=== PATIENT | male | born 1965 | race Caucasian/White ===

== ENCOUNTER 2016-09-28 10:32 | Outpatient (CLI) | payer OTHER ==
[2016-09-28 10:43] LABS: BASOPHILS # (AUTO) 0.1 10^3/uL (0.0-0.1); BASOPHILS % (AUTO) 0.6 %; EOSINOPHILS # (AUTO) 0.3 10^3/uL (0.0-0.7); EOSINOPHILS % (AUTO) 3.8 %; HCT - HEMATOCRIT 45.6 % (42.0-52.0); HGB - HEMOGLOBIN 15.5 g/dL (14.0-18.0); LYMPHOCYTES % (AUTO) 23.2 %; MEAN CORPUSCULAR HEMOGLOBIN 29.1 pg (27.0-31.0); MEAN CORPUSCULAR VOLUME 85.7 fL (80.0-94.0); MONOCYTES # (AUTO) 0.7 10^3/uL (0.0-1.0); MONOCYTES % (AUTO) 8.5 %; NEUTROPHILS # (AUTO) 5.5 10^3/uL (1.5-6.6); NEUTROPHILS % (AUTO) 63.9 %; RED BLOOD COUNT 5.33 10^6/uL (4.70-6.10); RED CELL DISTRIBUTION WIDTH 15.1 % (12.0-15.0); UNCORRECTED WHITE BLOOD COUNT 8.6 x10^3/uL; WHITE BLOOD COUNT 8.6 x10^3/uL (4.8-10.8)
[2016-09-28 11:00] LABS: ALBUMIN/GLOBULIN RATIO 1.7 (1.0-2.2); BILIRUBIN,TOTAL 0.7 mg/dL (0.2-1.0); CALCIUM 9.3 mg/dL (8.5-10.3); CREATININE 1.1 mg/dL (0.6-1.2); POTASSIUM 4.1 mmol/L (3.5-5.0); TOTAL PROTEIN 7.2 g/dL (6.7-8.2)
== END 2016-09-28 10:33 | disposition home or self-care (01) ==
LOC: LAB 10:32
PROVIDERS: ATTEND Surgery
DX: Z01.812 Encounter for preprocedural laboratory examination (principal)
CPT/HCPCS: 36415; 80053; 85025

== ENCOUNTER 2016-10-28 10:39 | Outpatient (CLI) | payer OTHER ==
[2016-10-28 18:53] LABS: BASOPHILS % (AUTO) 0.4 %; EOSINOPHILS # (AUTO) 0.2 10^3/uL (0.0-0.7); EOSINOPHILS % (AUTO) 3.1 %; HCT - HEMATOCRIT 42.5 % (42.0-52.0); HGB - HEMOGLOBIN 14.1 g/dL (14.0-18.0); LYMPHOCYTES # (AUTO) 1.7 10^3/uL (1.5-3.5); LYMPHOCYTES % (AUTO) 23.2 %; MEAN CORPUSCULAR HEMOGLOBIN 29.4 pg (27.0-31.0); MEAN CORPUSCULAR HGB CONC 33.2 g/dL (32.0-36.0); MEAN CORPUSCULAR VOLUME 88.5 fL (80.0-94.0); MEAN PLATELET VOLUME 8.1 fL (7.4-11.4); MONOCYTES # (AUTO) 0.6 10^3/uL (0.0-1.0); MONOCYTES % (AUTO) 7.8 %; NEUTROPHILS # (AUTO) 4.9 10^3/uL (1.5-6.6); NEUTROPHILS % (AUTO) 65.5 %; RED CELL DISTRIBUTION WIDTH 15.5 % (12.0-15.0); UNCORRECTED WHITE BLOOD COUNT 7.5 x10^3/uL; WHITE BLOOD COUNT 7.5 x10^3/uL (4.8-10.8)
[2016-10-28 19:21] LABS: ALBUMIN/GLOBULIN RATIO 1.7 (1.0-2.2); BILIRUBIN,TOTAL 0.7 mg/dL (0.2-1.0); BUN - BLOOD UREA NITROGEN 14 mg/dL (6-20); CALCIUM 9.1 mg/dL (8.5-10.3); CARBON DIOXIDE - CO2 28 mmol/L (21-32); CHLORIDE 107 mmol/L (101-111); CHOL/HDL RATIO 4.1 (<5.0); CHOLESTEROL 136 mg/dL; CREATININE 1.2 mg/dL (0.6-1.2); GFR - MDRD 65 (>89); GLUCOSE 83 mg/dL (70-100); HDL CHOLESTEROL 33 mg/dL; LDL/HDL RATIO 2.4 (<3.6); POTASSIUM 4.2 mmol/L (3.5-5.0); SODIUM 143 mmol/L (135-145); TOTAL PROTEIN 6.9 g/dL (6.7-8.2); TRIGLYCERIDES 118 mg/dL; VLDL CHOLESTEROL 24 mg/dL
[2016-10-28 19:22] LABS: PSA TOTAL 0.51 ng/mL (0.000-2.000)
[2016-10-28 19:25] LABS: HEMOGLOBIN A1C 0.49 g/dL
== END 2016-10-28 10:40 | disposition home or self-care (01) ==
LOC: LAB.WCP 10:39
PROVIDERS: ATTEND Family Medicine
DX: I10 Essential (primary) hypertension (principal); E11.9 Type 2 diabetes mellitus without complications; E29.1 Testicular hypofunction
CPT/HCPCS: 36415; 80053; 80061; 82043; 83036; 84153; 84403; 84443; 85025

== ENCOUNTER 2017-04-19 08:41 | Outpatient (CLI) | payer OTHER ==
[2017-04-19 09:14] LABS: BASOPHILS % (AUTO) 0.6 %; EOSINOPHILS # (AUTO) 0.2 10^3/uL (0.0-0.7); EOSINOPHILS % (AUTO) 2.6 %; HCT - HEMATOCRIT 43.2 % (42.0-52.0); HGB - HEMOGLOBIN 14.4 g/dL (14.0-18.0); LYMPHOCYTES # (AUTO) 1.8 10^3/uL (1.5-3.5); LYMPHOCYTES % (AUTO) 27.2 %; MEAN CORPUSCULAR HEMOGLOBIN 29.1 pg (27.0-31.0); MEAN CORPUSCULAR HGB CONC 33.4 g/dL (32.0-36.0); MEAN CORPUSCULAR VOLUME 87.1 fL (80.0-94.0); MEAN PLATELET VOLUME 7.7 fL (7.4-11.4); MONOCYTES # (AUTO) 0.4 10^3/uL (0.0-1.0); MONOCYTES % (AUTO) 6.4 %; NEUTROPHILS # (AUTO) 4.1 10^3/uL (1.5-6.6); NEUTROPHILS % (AUTO) 63.2 %; NUCLEATED RED BLOOD CELLS AUTO 0.1 /100WBC; RED BLOOD COUNT 4.96 10^6/uL (4.70-6.10); UNCORRECTED WHITE BLOOD COUNT 6.4 x10^3/uL; WHITE BLOOD COUNT 6.4 x10^3/uL (4.8-10.8)
[2017-04-19 09:40] LABS: ALBUMIN/GLOBULIN RATIO 1.6 (1.0-2.2); BILIRUBIN,TOTAL 0.8 mg/dL (0.2-1.0); BUN - BLOOD UREA NITROGEN 14 mg/dL (6-20); CALCIUM 9.3 mg/dL (8.5-10.3); CARBON DIOXIDE - CO2 29 mmol/L (21-32); CHLORIDE 105 mmol/L (101-111); CHOL/HDL RATIO 3.9 (<5.0); CHOLESTEROL 138 mg/dL; GFR - MDRD 79 (>89); GLUCOSE 101 mg/dL (70-100); HDL CHOLESTEROL 35 mg/dL; HEMOGLOBIN A1C 0.52 g/dL; IRON 69 ug/dL (45-182); LDL/HDL RATIO 2.4 (<3.6); POTASSIUM 4.3 mmol/L (3.5-5.0); SODIUM 144 mmol/L (135-145); TOTAL IRON BINDING CAPACITY 248 ug/dL (250-450); TOTAL PROTEIN 6.9 g/dL (6.7-8.2); TRANSFERRIN 177 mg/dL (180-329); TRIGLYCERIDES 101 mg/dL; VLDL CHOLESTEROL 20 mg/dL
[2017-04-19 09:51] LABS: THYROID STIMULATING HORMONE 1.49 uIU/mL (0.34-5.60)
[2017-04-19 09:58] LABS: FERRITIN 190.9 ng/mL (23.9-336.2)
[2017-04-19 10:02] LABS: FOLATE 22.04 ng/mL (5.90 - >24.8)
== END 2017-04-19 08:42 | disposition home or self-care (01) ==
LOC: LAB 08:41
PROVIDERS: ATTEND Registered Nurse Community Health
DX: E44.0 Moderate protein-calorie malnutrition (principal); E63.9 Nutritional deficiency, unspecified
CPT/HCPCS: 36415; 80053; 80061; 82306; 82607; 82728; 82746; 83036; 83540; 84425; 84443; 84466; 85025

== ENCOUNTER 2018-01-04 23:20 | Emergency (ER) | payer OTHER ==
[2018-01-04] MEDS ORDERED: NITROGLYCERIN SL 0.4 MG TABLET SL STA ×2 (23:36→23:37)
[2018-01-04] MEDS ORDERED: NITROGLYCERIN 2% PASTE TOP STA (23:37)
[2018-01-04] MEDS ORDERED: NITROGLYCERIN SL 0.4 MG TABLET SL ONE (23:37)
[2018-01-04] MEDS ORDERED: ASPIRIN CHEW 81 MG TABLET ONE (23:37)
[2018-01-04] MEDS ORDERED: ASPIRIN 325 MG TABLET PO STA (23:37)
[2018-01-04] MEDS ORDERED: ASPIRIN CHEW 81 MG TABLET PO STA (23:37)
[2018-01-04 23:43] LABS: BASOPHILS # (AUTO) 0.1 10^3/uL (0.0-0.1); BASOPHILS % (AUTO) 0.6 %; EOSINOPHILS # (AUTO) 0.3 10^3/uL (0.0-0.7); EOSINOPHILS % (AUTO) 2.8 %; HGB - HEMOGLOBIN 15.2 g/dL (14.0-18.0); LYMPHOCYTES # (AUTO) 3.2 10^3/uL (1.5-3.5); LYMPHOCYTES % (AUTO) 27.4 %; MEAN CORPUSCULAR HEMOGLOBIN 29.6 pg (27.0-31.0); MEAN CORPUSCULAR HGB CONC 33.5 g/dL (32.0-36.0); MEAN CORPUSCULAR VOLUME 88.2 fL (80.0-94.0); MEAN PLATELET VOLUME 7.8 fL (7.4-11.4); MONOCYTES % (AUTO) 8.5 %; NEUTROPHILS # (AUTO) 7.2 10^3/uL (1.5-6.6); NEUTROPHILS % (AUTO) 60.7 %; PLT - PLATELET COUNT 236 10^3/uL (130-450); RED BLOOD COUNT 5.13 10^6/uL (4.70-6.10); RED CELL DISTRIBUTION WIDTH 13.9 % (12.0-15.0); WHITE BLOOD COUNT 11.8 x10^3/uL (4.8-10.8)
--- NOTE | 2018-01-05 00:16 | XRAY Report ---
Procedure Date: 01/04/2018 Accession Number: [id number] / [id number] Procedure: XR - Chest 1 View X-Ray CPT Code: 06064 FULL RESULT: EXAM: CHEST RADIOGRAPHY EXAM DATE: 01/04/2018 11:53 PM. CLINICAL HISTORY: Chest pain. COMPARISON: CHEST 2 VIEW PA/LAT 09/22/2015 11:00 AM. TECHNIQUE: 1 view. FINDINGS: Lungs/Pleura: No alveolar consolidation or pleural effusion seen. No pneumothorax. Mediastinum: Within exam limitations, the cardiomediastinal contour is normal. Other: None. IMPRESSION: 1. No acute abnormality seen in the chest. RADIA
[2018-01-05 00:19] LABS: ALBUMIN 4.6 g/dL (3.2-5.5); ALBUMIN/GLOBULIN RATIO 1.5 (1.0-2.2); BILIRUBIN,TOTAL 0.9 mg/dL (0.2-1.0); CREATININE 1.1 mg/dL (0.6-1.2); TOTAL PROTEIN 7.7 g/dL (6.7-8.2)
--- NOTE | 2018-01-05 01:39 | ED Physician Documentation ---
PD HPI CHEST PAIN - Stated complaint Stated Complaint: CHEST PX - Chief complaint Chief Complaint: Cardiac - History obtained from History obtained from: Patient, Family - History of Present Illness Timing - onset: Today Timing - onset during: Rest Timing - details: Abrupt onset, Still present Quality: Pressure, Aching Location: Substernal, Left chest Worsened by: Exertion Associated symptoms: Shortness of air, Nausea Similar symptoms before: Work up / diagnostics Recently seen: Not recently seen - Additional information Additional information: Patient is a 52 year old obese male who is presenting to the emergency department for chest pain. Patient states that it started at rest and is severe in nature. patient reports that it happened a few weeks ago when he was on vacation but did not stay for prolonged treatment. At that time the pain did resolve with nitro. Upon initial evaluation patient was awake, alert, in pain and diaphoretic. Review of Systems Constitutional: denies: Fever, Chills Cardiac: reports: Chest pain / pressure, Palpitations. denies: Pedal edema, Calf pain Respiratory: denies: Dyspnea, Cough GI: reports: Nausea. denies: Vomiting Musculoskeletal: denies: Back pain, Extremity pain Neurologic: denies: Generalized weakness PD PAST MEDICAL HISTORY - Past Medical History Past Medical History: Yes Cardiovascular: None Respiratory: Asthma, COPD Endocrine/Autoimmune: HyPOthyroidism GI: Ulcers, Other : None HEENT: Chronic sinusitis, Chronic hearing loss Psych: None Musculoskeletal: Osteoarthritis, Chronic back pain Derm: None - Past Surgical History Past Surgical History: Yes General: Cholecystectomy HEENT: Tonsil/Adenoidectomy - Present Medications Home Medications: Ambulatory Orders Medication Instructions Recorded Confirmed Albuterol [Ventolin Hfa] 1 puffs PO QID 05/12/15 02/23/16 Bupropion HCl [Wellbutrin] 150 mg PO DAILY 05/12/15 02/23/16 Fluticasone/Salmeterol 500/50 1 puffs PO DAILY 05/12/15 02/23/16 [Advair 500 Mcg/50 Mcg] Ipratropium/Albuterol [Duoneb] 3 ml PO PRN PRN 05/12/15 02/20/16 Levothyroxine [Synthroid] 50 mcg PO DAILY 05/12/15 02/23/16 Testosterone [Androgel] 5 gm TOP DAILY 05/12/15 02/23/16 oxyCODONE ER [OxyCONTIN] 20 mg PO TID 05/12/15 02/23/16 Gabapentin 300 mg PO BID 01/30/16 02/23/16 Losartan [Cozaar] 100 mg PO DAILY 01/30/16 02/23/16 - Allergies Allergies/Adverse Reactions: Allergies Allergy/AdvReac Type Severity Reaction Status Date / Time No Known Drug Allergies Allergy Verified 01/04/18 23:33 - Social History Does the pt smoke?: No Smoking Status: Never smoker Does the pt drink ETOH?: No Does the pt have substance abuse?: No - Immunizations Immunizations are current?: Yes - POLST Patient has POLST: No PD ED PE NORMAL - Vitals Vital signs reviewed: Yes - General General: Alert and oriented X 3 - HEENT HEENT: Atraumatic - Neck Neck: No JVD - Cardiac Cardiac: RRR - Respiratory Respiratory: Clear bilaterally - Abdomen Abdomen: Soft - Derm Derm: Normal color, Warm and dry - Extremities Extremities: No deformity - Neuro Neuro: Alert and oriented X 3 PD ED PE EXPANDED - General General: Alert, In Pain, Other (obese) Results - Vitals Vitals: Vital Signs - 24 hr 01/04/18 01/04/18 01/04/18 23:20 23:43 23:55 Temperature 36.3 C L Heart Rate 79 78 72 Respiratory 17 14 19 Rate Blood Pressure 142/83 H 106/62 112/67 O2 Saturation 100 97 97 01/05/18 01/05/18 01/05/18 00:10 00:35 01:06 Temperature Heart Rate 77 69 69 Respiratory 22 15 15 Rate Blood Pressure 106/71 92/65 109/73 O2 Saturation 100 100 99 Oxygen O2 Source Room air - EKG (time done) 2326 Rate: Rate (enter#) (75) Rhythm: NSR [place]: Normal Intervals: Normal [place] Ischemia: ST depression 2342 Rate: Rate (enter#) (83) Rhythm: NSR [place]: Normal Intervals: Normal [place] QRS: Normal Compare to prior EKG: Changed from prior EKG 0008 Rate: Rate (enter#) (69) Rhythm: NSR [place]: Normal Intervals: Normal [place] QRS: Normal Compare to prior EKG: Unchanged from prior EKG - Labs Labs: Laboratory Tests 08/22/18 08/22/18 08/22/18 23:30 23:30 23:30 WBC 11.8 H RBC 5.13 Hgb 15.2 Hct 45.2 MCV 88.2 MCH 29.6 MCHC 33.5 RDW 13.9 Plt Count 236 MPV 7.8 Neut # (Auto) 7.2 H Lymph # (Auto) 3.2 [place] # (Auto) 1.0 Eos # (Auto) 0.3 Baso # (Auto) 0.1 Absolute Nucleated RBC 0.00 Nucleated RBC % 0.0 Sodium 139 Potassium 4.0 Chloride 102 Carbon Dioxide 30 Anion Gap 7.0 BUN 14 Creatinine 1.1 Estimated GFR (MDRD) 71 L Glucose 83 Calcium 9.0 Total Bilirubin 0.9 AST 42 ALT 32 Alkaline Phosphatase 108 Troponin I < 0.04 B-Natriuretic Peptide Total Protein 7.7 Albumin 4.6 Globulin 3.1 Albumin/Globulin Ratio 1.5 Lipase 27 01/04/18 23:30 WBC RBC Hgb Hct MCV MCH MCHC RDW Plt Count MPV Neut # (Auto) Lymph # (Auto) [place] # (Auto) Eos # (Auto) Baso # (Auto) Absolute Nucleated RBC Nucleated RBC % Sodium Potassium Chloride Carbon Dioxide Anion Gap BUN Creatinine Estimated GFR (MDRD) Glucose Calcium Total Bilirubin AST ALT Alkaline Phosphatase Troponin I B-Natriuretic Peptide 6 Total Protein Albumin Globulin Albumin/Globulin Ratio Lipase - Rads (name of study) chest x-ray Radiology: Final report received (normal) PD MEDICAL DECISION MAKING - ED course Complexity details: reviewed old records, reviewed results, re-evaluated patient , considered differential, d/w patient, d/w family, d/w customer experience consultant ED course: Patient was seen and examined at bedside. Patient was diaphoretic and in pain. ekg was performed and showed mild st depression in lateral leads but no other ischemic changes. IV access was gained and labs were drawn. patient was treated with nitro sl and aspirin. chest x-ray was ordered. Patient's pain resolved with nitro with the drop in blood pressure. Patient two subsequent ekgs showed normalization of the lateral leads. patient's chest x-ray was within normal limits. Patient's symptoms were likely secondary to unstable angina. Case was discussed with dr. pearce at [facility] who accepted the patient in transfer. Patient was transferred chest pain free. - Sepsis Event Vital Signs: Vital Signs - 24 hr 01/04/18 01/04/18 01/04/18 23:20 23:43 23:55 Temperature 36.3 C L Heart Rate 79 78 72 Respiratory 17 14 19 Rate Blood Pressure 142/83 H 106/62 112/67 O2 Saturation 100 97 97 01/05/18 01/05/18 01/05/18 00:10 00:35 01:06 Temperature Heart Rate 77 69 69 Respiratory 22 15 15 Rate Blood Pressure 106/71 92/65 109/73 O2 Saturation 100 100 99 Oxygen O2 Source Room air Departure - Departure Disposition: 02 Transfer Acute Care Hosp Clinical Impression: Unstable angina Condition: Critical
[2018-01-05] MEDS ORDERED: SODIUM CHLORIDE 0.9% 1,000 ML IV ONE (02:17)
[2018-01-05 02:45] VITALS: BP 127/87
== END 2018-01-05 02:50 | disposition short-term general hospital (02) ==
LOC: ED 23:20
DX: I20.0 Unstable angina (principal); J44.9 Chronic obstructive pulmonary disease, unspecified
CPT/HCPCS: 36415; 71045; 80053; 83690; 83880; 84484; 85025; 93005; 96360; 96361; 99284; 99285; A9270

== ENCOUNTER 2018-03-21 10:07 | Outpatient (CLI) | payer MEDICARE ==
[2018-03-21 10:49] LABS: BASOPHILS % (AUTO) 0.5 %; EOSINOPHILS # (AUTO) 0.2 10^3/uL (0.0-0.7); EOSINOPHILS % (AUTO) 3.2 %; HGB - HEMOGLOBIN 14.6 g/dL (14.0-18.0); LYMPHOCYTES # (AUTO) 1.3 10^3/uL (1.5-3.5); LYMPHOCYTES % (AUTO) 23.1 %; MEAN CORPUSCULAR HGB CONC 34.3 g/dL (32.0-36.0); MEAN CORPUSCULAR VOLUME 87.6 fL (80.0-94.0); MEAN PLATELET VOLUME 7.4 fL (7.4-11.4); MONOCYTES # (AUTO) 0.4 10^3/uL (0.0-1.0); MONOCYTES % (AUTO) 7.5 %; NEUTROPHILS # (AUTO) 3.8 10^3/uL (1.5-6.6); NEUTROPHILS % (AUTO) 65.7 %; PLT - PLATELET COUNT 178 10^3/uL (130-450); RED BLOOD COUNT 4.87 10^6/uL (4.70-6.10); RED CELL DISTRIBUTION WIDTH 13.5 % (12.0-15.0); WHITE BLOOD COUNT 5.8 x10^3/uL (4.8-10.8)
[2018-03-21 11:13] LABS: ALBUMIN 4.5 g/dL (3.2-5.5); ALBUMIN/GLOBULIN RATIO 1.7 (1.0-2.2); ALKALINE PHOSPHATASE 98 IU/L (42-121); ALT ALANINE AMINOTRANSFERASE 27 IU/L (10-60); AST ASPARTATE AMINOTRANSFERASE 17 IU/L (10-42); BILIRUBIN,TOTAL 0.9 mg/dL (0.2-1.0); BUN - BLOOD UREA NITROGEN 13 mg/dL (6-20); CARBON DIOXIDE - CO2 32 mmol/L (21-32); CHLORIDE 104 mmol/L (101-111); CHOL/HDL RATIO 3.8 (<5.0); CHOLESTEROL 153 mg/dL; CREATININE 1.1 mg/dL (0.6-1.2); GFR - MDRD 71 (>89); GLUCOSE 100 mg/dL (70-100); HDL CHOLESTEROL 40 mg/dL; LDL CHOLESTEROL,CALCULATED 98 mg/dL; LDL/HDL RATIO 2.5 (<3.6); SODIUM 142 mmol/L (135-145); TOTAL PROTEIN 7.2 g/dL (6.7-8.2); VLDL CHOLESTEROL 15 mg/dL
[2018-03-21 11:26] LABS: HB2 TOTAL 15.4 g/dL; HEMOGLOBIN A1C 0.55 g/dL; HEMOGLOBIN A1C % 5.4 % (4.6-6.2)
== END 2018-03-21 10:08 | disposition home or self-care (01) ==
LOC: LAB 10:07
PROVIDERS: ATTEND Family Medicine
DX: E11.9 Type 2 diabetes mellitus without complications (principal); E29.1 Testicular hypofunction; E03.9 Hypothyroidism, unspecified
CPT/HCPCS: 36415; 80053; 80061; 83036; 83721; 84403; 84443; 85025

== ENCOUNTER 2018-03-31 16:08 | Outpatient (CLI) | payer MEDICARE | END 2018-03-31 16:09 | disposition home or self-care (01) | LOC: LAB 16:08 | PROVIDERS: ATTEND Family Medicine | DX: E29.1 Testicular hypofunction (principal) | CPT/HCPCS: 36415; 84403 ==

== ENCOUNTER 2018-08-07 08:00 | Outpatient (CLI) | payer MEDICARE | END 2018-08-07 23:59 | disposition home or self-care (01) | LOC: LAB.R 08:00 | PROVIDERS: ATTEND Physician Assistant | DX: R05 Cough (principal) | CPT/HCPCS: 87275; 87276 ==

== ENCOUNTER 2018-08-07 14:35 | Outpatient (CLI) | payer MEDICARE ==
--- NOTE | 2018-08-07 15:31 | XRAY Report ---
Reason: COUGH Procedure Date: 08/07/2018 Accession Number: [id number] / [id number] Procedure: WCP - Chest 2 View X-Ray CPT Code: 85416 FULL RESULT: EXAM: CHEST RADIOGRAPHY EXAM DATE: 08/07/2018 02:50 PM. CLINICAL HISTORY: Cough. COMPARISON: CHEST 1 VIEW 01/04/2018 11:41 PM. TECHNIQUE: 2 views. FINDINGS: Lungs/Pleura: No focal opacities evident. No pleural effusion. No pneumothorax. Normal volumes. Mediastinum: Heart and mediastinal contours are unremarkable. Other: None. IMPRESSION: Normal 2-view chest radiography. RADIA
== END 2018-08-07 14:36 | disposition home or self-care (01) ==
LOC: DI.WCP 14:35
PROVIDERS: ATTEND Physician Assistant
DX: R05 Cough (principal)
CPT/HCPCS: 71046; 87275; 87276

== ENCOUNTER 2019-06-21 11:11 | Outpatient (CLI) | payer MEDICARE ==
[2019-06-21 11:41] LABS: MUDS CUTOFF CONCENTRATIONS CUTOFF CONC BELOW:
[2019-06-21 12:11] LABS: BASOPHILS % (AUTO) 0.7 %; EOSINOPHILS # (AUTO) 0.1 10^3/uL (0.0-0.7); EOSINOPHILS % (AUTO) 2.7 %; HGB - HEMOGLOBIN 15.1 g/dL (14.0-18.0); LYMPHOCYTES # (AUTO) 1.2 10^3/uL (1.5-3.5); LYMPHOCYTES % (AUTO) 25.7 %; MEAN CORPUSCULAR HEMOGLOBIN 32.3 pg (27.0-31.0); MEAN CORPUSCULAR HGB CONC 35.5 g/dL (32.0-36.0); MEAN CORPUSCULAR VOLUME 90.8 fL (80.0-94.0); MEAN PLATELET VOLUME 10.2 fL (7.4-11.4); MONOCYTES # (AUTO) 0.3 10^3/uL (0.0-1.0); MONOCYTES % (AUTO) 5.6 %; NEUTROPHILS # (AUTO) 2.9 10^3/uL (1.5-6.6); NEUTROPHILS % (AUTO) 64.9 %; PLT - PLATELET COUNT 224 10^3/uL (130-450); RED BLOOD COUNT 4.68 10^6/uL (4.70-6.10); RED CELL DISTRIBUTION WIDTH 12.9 % (12.0-15.0); WHITE BLOOD COUNT 4.5 x10^3/uL (4.8-10.8)
[2019-06-21 12:30] LABS: ALBUMIN 4.4 g/dL (3.2-5.5); ALBUMIN/GLOBULIN RATIO 1.8 (1.0-2.2); ALKALINE PHOSPHATASE 73 IU/L (42-121); ALT ALANINE AMINOTRANSFERASE 17 IU/L (10-60); AST ASPARTATE AMINOTRANSFERASE 17 IU/L (10-42); BILIRUBIN,TOTAL 1.1 mg/dL (0.2-1.0); BUN - BLOOD UREA NITROGEN 13 mg/dL (6-20); CALCIUM 9.1 mg/dL (8.5-10.3); CARBON DIOXIDE - CO2 29 mmol/L (21-32); CHLORIDE 103 mmol/L (101-111); CHOL/HDL RATIO 3.6 (<5.0); CHOLESTEROL 166 mg/dL; CREATININE 1.1 mg/dL (0.6-1.2); GFR - MDRD 71 (>89); GLUCOSE 101 mg/dL (70-100); HDL CHOLESTEROL 46 mg/dL; LDL CHOLESTEROL,CALCULATED 104 mg/dL; LDL/HDL RATIO 2.3 (<3.6); SODIUM 140 mmol/L (135-145); TOTAL PROTEIN 6.8 g/dL (6.7-8.2); VLDL CHOLESTEROL 16 mg/dL
[2019-06-21 12:35] LABS: AMPHETAMINE SCREEN,URINE NEGATIVE (NEGATIVE); BENZODIAZEPINES SCREEN, URINE NEGATIVE (NEGATIVE); COCAINE SCREEN URINE NEGATIVE (NEGATIVE); METHADONE SCREEN, URINE NEGATIVE (NEGATIVE); METHAMPHETAMINES SCREEN, URINE NEGATIVE (NEGATIVE); OPIATE SCREEN, URINE POSITIVE (NEGATIVE); OXYCODONE SCREEN, URINE NEGATIVE (NEGATIVE); PROPOXYPHENE SCREEN, URINE NEGATIVE (NEGATIVE); TRICYCLIC ANTIDEPRESSANT,URINE NEGATIVE (NEGATIVE)
[2019-06-21 12:38] LABS: HB2 TOTAL 14.1 g/dL; HEMOGLOBIN A1C 0.46 g/dL; HEMOGLOBIN A1C % 5.1 % (4.6-6.2)
== END 2019-06-21 11:12 | disposition home or self-care (01) ==
LOC: LAB 11:11
PROVIDERS: ATTEND Family Medicine
DX: E11.9 Type 2 diabetes mellitus without complications (principal); E29.1 Testicular hypofunction; Z79.891 Long term (current) use of opiate analgesic
CPT/HCPCS: 36415; 80053; 80061; 80306; 81599; 83036; 83721; 84402; 84403; 84443; 85025

== ENCOUNTER 2020-02-29 09:09 | Outpatient (CLI) | payer MEDICARE | END 2020-02-29 09:10 | disposition home or self-care (01) | LOC: LAB.S 09:09 | PROVIDERS: ATTEND Family Medicine | DX: R79.89 Other specified abnormal findings of blood chemistry (principal) | CPT/HCPCS: 36415; 84403 ==

== ENCOUNTER 2020-03-06 14:50 | Emergency (ER) | payer MEDICARE ==
[2020-03-06 15:32] LABS: BASOPHILS % (AUTO) 0.9 %; EOSINOPHILS % (AUTO) 16.6 %; HGB - HEMOGLOBIN 15.2 g/dL (14.0-18.0); MEAN CORPUSCULAR HEMOGLOBIN 29.9 pg (27.0-31.0); MEAN CORPUSCULAR HGB CONC 33.6 g/dL (32.0-36.0); MEAN CORPUSCULAR VOLUME 88.8 fL (80.0-94.0); MEAN PLATELET VOLUME 9.2 fL (7.4-11.4); MONOCYTES % (AUTO) 6.9 %; NEUTROPHILS % (AUTO) 49.3 %; PLT - PLATELET COUNT 188 10^3/uL (130-450); RED BLOOD COUNT 5.09 10^6/uL (4.70-6.10); RED CELL DISTRIBUTION WIDTH 12.4 % (12.0-15.0); WHITE BLOOD COUNT 8.9 x10^3/uL (4.8-10.8)
[2020-03-06 15:34] LABS: ABNORMAL LYMPHS % (MANUAL) 0 %; BAND NEUTROPHILS % (MANUAL) 0 %
[2020-03-06 15:45] LABS: LYMPHOCYTES # (MANUAL) 2.6 10^3/uL (1.5-3.5); LYMPHOCYTES % (MANUAL) 29 %; MONOCYTES # (MANUAL) 0.4 10^3/uL (0.0-1.0); RBC MORPHOLOGY (MULTIPLE) NORMAL APPEARANCE (NORMAL)
--- NOTE | 2020-03-06 15:45 | ED Physician Documentation ---
PD HPI ABD PAIN - Stated complaint Stated Complaint: MALE GI - Chief complaint Chief Complaint: Abd Pain - History obtained from History obtained from: Patient - History of Present Illness Timing - onset: Today, How many days ago (5) Timing - duration: Days (5) Timing - details: Gradual onset Pain level max: 5 Pain level now: 3 Quality: Cramping, Aching, Pain Location: All over / everywhere Radiation: No: Chest, , Lower back, Left flank, Left shoulder, Right flank, Right shoulder, Upper back Improved by: No: Eating, Laying still, Vomiting, BM, Position, Meds Worsened by: No: Eating, Moving, Breathing, Position, Palpation Associated symptoms: Diarrhea. No: Fever, Nausea, Vomiting, Hematemesis, Constipation, Melena, Hematochezia, Dysuria, Hematuria, Chest pain, Dizzy, Near syncope / syncope, Loss of appetite, Weight loss Recently seen: Not recently seen - Additional information Additional information: 54-year-old male presents to the emergency department with with diffuse abdominal cramping. States has been ongoing for 5 days with liquid diarrhea, 4- 5 times per day. No blood. No recent antibiotics or travel. Has been on methadone for the past 2 months. Was on long-acting morphine prior to that. No vomiting or fever. Review of Systems Ten Systems: 10 systems reviewed and negative Constitutional: denies: Fever, Chills Nose: denies: Rhinorrhea / runny nose, Congestion Throat: denies: Sore throat Cardiac: denies: Chest pain / pressure Respiratory: denies: Cough GI: denies: Vomiting, Hematemesis, Bloody / black stool : denies: Dysuria, Frequency, Hesitancy Skin: denies: Rash Musculoskeletal: denies: Neck pain, Back pain Neurologic: denies: Headache PD PAST MEDICAL HISTORY - Past Medical History Past Medical History: Yes Cardiovascular: Angina Respiratory: Asthma, COPD Neuro: Peripheral neuropathy, Tremors Endocrine/Autoimmune: HyPOthyroidism GI: Ulcers, Other : None HEENT: Chronic sinusitis, Chronic hearing loss Psych: None Musculoskeletal: Osteoarthritis, Chronic back pain Derm: Psoriasis - Past Surgical History Past Surgical History: Yes General: Cholecystectomy Ortho: Carpal Tunnel surgery HEENT: Tonsil/Adenoidectomy - Present Medications Home Medications: Ambulatory Orders Medication Instructions Recorded Confirmed Albuterol [Ventolin Hfa] 1 puffs PO QID PRN 05/12/15 10/20/19 Bupropion HCl [Wellbutrin] 450 mg PO DAILY PM 05/12/15 10/20/19 Fluticasone/Salmeterol 500/50 1 puffs PO BID 05/12/15 10/20/19 [Advair 500 Mcg/50 Mcg] Ipratropium/Albuterol [Duoneb] 3 ml PO PRN PRN 05/12/15 10/20/19 Testosterone [Androgel] 5 gm TOP DAILY 05/12/15 10/20/19 Gabapentin 300 mg PO BID 01/30/16 10/20/19 Losartan [Cozaar] 100 mg PO DAILY 01/30/16 10/20/19 Amox/Clav 875/125 [Augmentin] 1 each PO Q12H #14 tablet 10/20/19 Fluoxetine HCl 20 mg PO DAILY 10/20/19 10/20/19 Morphine Sulfate ER [Ms Contin] 30 mg PO BID 10/20/19 10/20/19 Morphine Sulfate ER [Ms Contin] 30 mg PO BID #9 tablet.er 10/20/19 - Allergies Allergies/Adverse Reactions: Allergies Allergy/AdvReac Type Severity Reaction Status Date / Time No Known Drug Allergies Allergy Verified 03/06/20 14:59 - Social History Does the pt smoke?: No Smoking Status: Never smoker Does the pt drink ETOH?: Yes Does the pt have substance abuse?: No - Immunizations Immunizations are current?: Yes - POLST Patient has POLST: No PD ED PE NORMAL - Vitals Vital signs reviewed: Yes - General General: Alert and oriented X 3, No acute distress - HEENT HEENT: Moist mucous membranes - Neck Neck: Supple, no meningeal sign - Cardiac Cardiac: RRR, Strong equal pulses - Respiratory Respiratory: No respiratory distress, Clear bilaterally - Abdomen Abdomen: Soft, Non tender, Non distended - Back Back: No CVA TTP, No spinal TTP - Derm Derm: Warm and dry - Extremities Extremities: No edema - Neuro Neuro: Alert and oriented X 3 - Psych Psych: Normal mood, Normal affect Results - Vitals Vitals: Vital Signs - 24 hr 03/06/20 14:53 Temperature 36.2 C L Heart Rate 85 Respiratory 18 Rate Blood Pressure 128/81 H O2 Saturation 97 Oxygen O2 Source Room air - Labs Labs: Laboratory Tests 03/06/20 03/06/20 03/06/20 15:20 15:20 16:00 WBC 8.9 RBC 5.09 Hgb 15.2 Hct 45.2 MCV 88.8 MCH 29.9 MCHC 33.6 RDW 12.4 Plt Count 188 MPV 9.2 Neut # (Auto) Not Reportable Lymph # (Auto) Not Reportable [place] # (Auto) Not Reportable Eos # (Auto) Not Reportable Baso # (Auto) Not Reportable Absolute Nucleated RBC Not Reportable Total Counted 100 Band Neuts % (Manual) 0 Abnorm Lymph % (Manual) 0 Nucleated RBC % Not Reportable Neutrophils # (Manual) 3.9 Lymphocytes # (Manual) 2.6 Monocytes # (Manual) 0.4 Eosinophils # (Manual) 2.0 H Basophils # (Manual) 0.0 Differential Comment MANUAL DIFFERENTIAL Manual Slide Review Indicated WBC Morphology NORMAL APPEARANCE Platelet Estimate NORMAL (130-450,000) Platelet Morphology NORMAL APPEARANCE RBC Morph Micro Appear NORMAL APPEARANCE Sodium 139 Potassium 3.6 Chloride 100 L Carbon Dioxide 29 Anion Gap 10.0 BUN 8 Creatinine 0.9 Estimated GFR (MDRD) 89 Glucose 77 Calcium 9.0 Total Bilirubin 0.5 AST 31 ALT 36 Alkaline Phosphatase 126 H Total Protein 6.9 Albumin 4.3 Globulin 2.6 Albumin/Globulin Ratio 1.7 Lipase 22 Urine Color YELLOW Urine Clarity CLEAR Urine pH 6.0 Ur Specific [place] <=1.005 Urine Protein NEGATIVE Urine Glucose (UA) NEGATIVE Urine Ketones NEGATIVE Urine Occult Blood NEGATIVE Urine Nitrite NEGATIVE Urine Bilirubin NEGATIVE Urine Urobilinogen 0.2 (NORMAL) Ur Leukocyte Esterase NEGATIVE Ur Microscopic Review NOT INDICATED Urine Culture Comments NOT INDICATED - Rads (name of study) CT abdomen pelvis Radiology: Prelim report reviewed, EMP read contemporaneously, See rad report PD MEDICAL DECISION MAKING - ED course Complexity details: reviewed results, re-evaluated patient, considered differential, d/w patient ED course: 54-year-old male with what appears to be viral diarrhea. He is well-appearing, nontoxic. Afebrile. Feels much better after IV fluids. No diarrhea in the emergency department. Unable to obtain a stool sample. Tolerating p.o. without difficulty. We will have him follow-up with his doctor if his symptoms continue for more than a week. Patient counseled regarding signs and symptoms for which I believe and urgent re-evaluation would be necessary. Patient with good understanding of and agreement to plan and is comfortable going home at this time This document was made in part using voice recognition software. While efforts are made to proofread this document, sound alike and grammatical errors may occur. Central mesenteric haziness with subthreshold mesenteric lymphadenopathy. Findings may represent acute enteritis, usually self-limited. Follow-up to clinical and perhaps radiographic resolution is recommended to help exclude a more worrisome lymphoproliferative or chronic process. Postsurgical changes of sleeve gastrectomy. Departure - Departure Disposition: 01 Home, Self Care Clinical Impression: Viral enteritis, Dehydration Condition: Good Instructions: ED Diarrhea Viral Follow-Up: Sandro Bryant MD [Primary Care Provider] - Within 1 week Comments: Drink plenty of fluid. Return if you worsen. Follow-up with your doctor in 1 week if not better.
[2020-03-06 15:46] LABS: ALBUMIN 4.3 g/dL (3.2-5.5); ALBUMIN/GLOBULIN RATIO 1.7 (1.0-2.2); BILIRUBIN,TOTAL 0.5 mg/dL (0.2-1.0); CREATININE 0.9 mg/dL (0.6-1.2); DIFFERENTIAL COMMENT MANUAL DIFFERENTIAL; PLATELET ESTIMATE, MANUAL NORMAL (130-450,000) (NORMAL); PLATELET MORPHOLOGY NORMAL APPEARANCE (NORMAL); TOTAL PROTEIN 6.9 g/dL (6.7-8.2)
[2020-03-06] MEDS ORDERED: SODIUM CHLORIDE 0.9% 1,000 ML IV STA (15:53)
[2020-03-06 16:09] LABS: BILIRUBIN,URINE NEGATIVE (NEGATIVE); GLUCOSE, URINE (UA) NEGATIVE (NEGATIVE); KETONES,URINE (UA) NEGATIVE (NEGATIVE); LEUKOCYTE ESTERASE, URINE NEGATIVE (NEGATIVE); NITRITE,URINE NEGATIVE (NEGATIVE); OCCULT BLOOD,URINE NEGATIVE (NEGATIVE); PROTEIN,URINE NEGATIVE (NEGATIVE); UROBILINOGEN,URINE 0.2 (NORMAL) E.U./dL (NORMAL)
[2020-03-06] MEDS ORDERED: IOVERSOL 320 100 ML VIAL IVP ONE ×2 (16:09→16:42)
[2020-03-06 16:10] LABS: CLARITY,URINE CLEAR (CLEAR)
--- NOTE | 2020-03-06 16:50 | CT Report ---
PROCEDURE: Abdomen/Pelvis W INDICATIONS: Diffuse abdominal pain and diarrhea CONTRAST: IV CONTRAST: Optiray 320 ml: 100 PO CONTRAST: *NO PO CONTRAST TECHNIQUE: After the administration of intravenous contrast, 5 mm thick sections acquired from the diaphragms to the symphysis. 5 mm thick coronal and sagittal reformats were acquired. For radiation dose reducti on, the following was used: automated exposure control, adjustment of mA and/or kV according to nelson ent size. COMPARISON: None. FINDINGS: Image quality: Excellent. ABDOMEN: Lung bases: Lung bases are clear. Heart size is normal. Solid organs: Normal CT appearance of the liver, spleen, pancreas, adrenal glands, and kidneys. Peritoneum and bowel: Postsurgical changes of sleeve gastrectomy. No free air or inflammatory changes adjacent to the staple line. There is no obvious gastric wall thickening or gastric wall edema. No a bnormally dilated loop of bowel. Normal appearance of the appendix without adjacent inflammatory koroma ges. Pericolonic fat stranding. There is mild mesenteric haziness with a few nonspecific prominent bu t not threshold enlarged left mesenteric lymph nodes. Nodes and vessels: No retroperitoneal or mesenteric adenopathy by size criteria. Aorta and inferior vena cava are normal in size. Miscellaneous: No ventral hernias. PELVIS: Genitourinary: Bladder wall thickness is normal. Miscellaneous: No inguinal hernias or adenopathy. Bones: No suspicious bony lesions. No vertebral body compression fractures. IMPRESSION: Central mesenteric haziness with subthreshold mesenteric lymphadenopathy. Findings may represent acut e enteritis, usually self-limited. Follow-up to clinical and perhaps radiographic resolution is recom mended to help exclude a more worrisome lymphoproliferative or chronic process. Postsurgical changes of sleeve gastrectomy. Reviewed by: Devon Kim MD on 03/06/2020 4:49 PM PDT Approved by: Devon Kim MD on 03/06/2020 4:49 PM PDT Station ID: [id number]
[2020-03-06 17:08] VITALS: BP 124/82
== END 2020-03-06 17:08 | disposition home or self-care (01) ==
LOC: ED 14:50
DX: A08.4 Viral intestinal infection, unspecified (principal); E86.0 Dehydration; I88.0 Nonspecific mesenteric lymphadenitis; Z98.84 Bariatric surgery status; G62.9 Polyneuropathy, unspecified; Z79.891 Long term (current) use of opiate analgesic
CPT/HCPCS: 36415; 74177; 80053; 81003; 83690; 85025; 96360; 99284; Q9967; 81001; 87086